=== PATIENT | female | born 1955 | race Caucasian/White ===

== ENCOUNTER 2017-05-01 06:37 | Inpatient (IN) | payer OTHER ==
[2017-04-27 09:48] VITALS: BMI 43.2
[2017-05-01] MEDS ORDERED: LIDOCAINE 1%/EPI 1:100000 (20 ML MULTI DOSE VIAL) ONE (07:04)
[2017-05-01] MEDS ORDERED: THROMBIN (BOVINE) 5,000 UNIT VIAL TP ONE ×2 (07:04→09:16)
[2017-05-01] MEDS ORDERED: BUPIVACAINE HCL/PF 2.5 MG/ML - 30 ML VIAL IJ ONE (07:04)
[2017-05-01] MEDS ORDERED: oxyCODONE HCL 10 MG SUSTAINED ACTING TABLET PO STA (07:08)
[2017-05-01] MEDS ORDERED: oxyCODONE HCL 5 MG TABLET ONE ×3 (07:10→15:19)
[2017-05-01] MEDS ORDERED: MIDAZOLAM HCL 2 MG/2 ML SINGLE DOSE VIAL ONE ×2 (08:22→09:07)
[2017-05-01] MEDS ORDERED: SUCCINYLCHOLINE CHLORIDE 200 MG/10 ML VIAL ONE (08:26)
[2017-05-01] MEDS ORDERED: PROPOFOL 20 ML ONE (08:26)
[2017-05-01] MEDS ORDERED: CLINDAMYCIN PHOSPHATE 600 MG/4 ML VIAL ONE (08:54)
[2017-05-01] MEDS ORDERED: ONDANSETRON 4 MG/2 ML VIAL ONE ×2 (08:54→09:06)
[2017-05-01] MEDS ORDERED: DEXAMETHASONE SOD PHOSPHATE 4 MG/1 ML VIAL ONE (08:54)
[2017-05-01] MEDS ORDERED: LIDOCAINE 1%/EPI 1:100000 (50 ML MULTI DOSE VIAL) INF ONE ×2 (09:00→10:30)
[2017-05-01] MEDS ORDERED: ePHEDrine SULFATE 50 MG/1 ML AMPULE ONE (09:05)
[2017-05-01] MEDS ORDERED: GELATIN SPONGE,ABSORBABLE 1 GM PACKET TP ONE (09:17)
--- NOTE | 2017-05-01 10:41 | HP ---
History & Physical Update - History History: No Change - Physical Physical: No Change - Assessment Assessment: No Change - Plan Plan: No Change
--- NOTE | 2017-05-01 10:44 | OP ---
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
[2017-05-01] MEDS ORDERED: ACETAMINOPHEN 325 MG TABLET (FP) PO SCH (10:45)
[2017-05-01] MEDS ORDERED: KETOROLAC TROMETHAMINE 30 MG/1 ML VIAL IVPUSH PRN (10:45)
[2017-05-01] MEDS ORDERED: LACTATED RINGERS SOLUTION 1,000 ML IV SCH ×2 (10:45)
[2017-05-01] MEDS ORDERED: ONDANSETRON 4 MG/2 ML VIAL IVPUSH PRN ×2 (10:45)
[2017-05-01] MEDS ORDERED: PROMETHAZINE HCL 25 MG/1 ML VIAL IVPUSH PRN (10:45)
[2017-05-01] MEDS ORDERED: oxyCODONE HCL 5 MG TABLET PO PRN ×4 (10:45)
--- NOTE | 2017-05-01 10:45 | SURG ---
Surgery Field Crop Farmer Note Field Crop Farmer: Nick Mora PA-C Date of Service: 05/01/17 Diagnosis: L4/5 spondylolithesis with radiculopathy Procedure: Transforaminal lumbar (L4/5) interbody fusion / decompression / instrumentation , neuromonitoring I was present for the entirety of the operative procedure. For further detail, please refer to operative report. Visit type - Case Type Case Type: Scheduled Admission - New patient This patient is new to me today: Yes Date on this admission: 05/01/17
[2017-05-01] MEDS ORDERED: ACETAMINOPHEN 1000 MG/100 ML VIAL (NON FORMULARY) IVPB ONE (10:50)
[2017-05-01] MEDS ORDERED: ALBUTEROL SO4 18 GM HFA INHALER IH PRN (10:50)
[2017-05-01] MEDS ORDERED: diazePAM 5 MG TABLET ONE (10:54)
[2017-05-01] MEDS ORDERED: PATIENT'S OWN MEDICATION (NON-FORMULARY) (Clonazepam [Klonopin] 0.5 MG) PO SCH (11:00)
[2017-05-01 11:05] VITALS: TEMP 98.3
[2017-05-01] MEDS ORDERED: CLINDAMYCIN 900 MG PREMIX IVPB 50 ML IVPB ONE (15:00)
[2017-05-01] MEDS ORDERED: CLINDAMYCIN 900 MG PREMIX BAG IVPB ONE (15:15)
[2017-05-01 16:40] VITALS: BP 142/84; PULSE 88
[2017-05-01] MEDS ORDERED: traMADol HCL 50 MG TABLET PO SCH (18:00)
[2017-05-01] MEDS ORDERED: ATORVASTATIN CA 10 MG TABLET (FP) PO SCH (22:00)
[2017-05-01] MEDS ORDERED: PATIENT'S OWN MEDICATION (NON-FORMULARY) (Omeprazole [Prilosec (Rx)] 40 MG) PO SCH (22:00)
[2017-05-01] MEDS ORDERED: PATIENT'S OWN MEDICATION (NON-FORMULARY) (Losartan/Hydrochlorothiazide [Losartan-Hctz 100- PO SCH (22:00)
[2017-05-01] MEDS ORDERED: diazePAM 2 MG TABLET PO SCH (22:00)
[2017-05-01] MEDS ORDERED: LOSARTAN POTASSIUM 50 MG TABLET (FP) PO SCH (22:00)
[2017-05-01] MEDS ORDERED: amLODIPine BESYLATE 5 MG TABLET (FP) PO SCH (22:00)
[2017-05-01] MEDS ORDERED: HYDROCHLOROTHIAZIDE 12.5 MG CAPSULE (FP) PO SCH (22:00)
[2017-05-01] MEDS ORDERED: diazePAM 5 MG TABLET PO SCH (22:00)
[2017-05-01] MEDS ORDERED: MONTELUKAST NA 10 MG TABLET PO SCH (22:00)
[2017-05-01] MEDS ORDERED: PANTOPRAZOLE 40 MG TABLET (FP) PO SCH (22:00)
[2017-05-01] MEDS ORDERED: PATIENT'S OWN MEDICATION (NON-FORMULARY) (Metformin Hcl [Metformin Hcl Er] 500 MG) PO SCH (22:00)
--- NOTE | 2017-05-02 07:52 | OP ---
DATE OF OPERATION: 05/01/2017 PREOPERATIVE DIAGNOSES: 1. Recurrent disk herniation at L4-5. 2. Spinal stenosis at L4-5. POSTOPERATIVE DIAGNOSES: 1. Recurrent disk herniation at L4-5. 2. Spinal stenosis at L4-5. PROCEDURE PERFORMED: 1. Transforaminal lumbar interbody fusion at L4-5. 2. Placement of instrumentation. 3. Hemilaminectomy. SURGEON: Shawn Young MD FORGE UTILITY WORKER: JOVANI Ruiz ESTIMATED BLOOD LOSS: 50 mL. INTRAVENOUS FLUIDS: Per Anesthesia. ANESTHESIA: Spinal. COMPLICATIONS: None. DISPOSITION: The patient brought to the PACU in stable condition. INDICATIONS FOR SURGERY: The patient is a 61-year-old female who had previously undergone a microdiscectomy. She had done well from that surgery, but then, she developed recurrent symptoms. X-rays and MRI were completed which noted that she had spinal stenosis at L4-5 secondary to a herniated disk. She had gone through an exhaustive course of treatment for this, which included medications, physical therapy, as well as injections. Unfortunately, her pain continued to persist despite all this. At this point, we had a long discussion about revision operation. We discussed the potential of doing a laminectomy versus a laminectomy plus fusion. Risks and benefits were discussed, and the patient decided to undergo a lumbar fusion. DESCRIPTION OF OPERATION: Patient was brought to the operating room by the anesthesia staff. After appropriate patient identification was performed, spinal anesthesia was given. Patient was able to place herself prone onto the OR table with all areas of bony prominences well padded at this time. The C-arm was brought in. The L4 and L5 pedicles were marked off. Next, 10 mL of lidocaine with epinephrine were injected into her back. At this time, her back was prepped and draped in a sterile manner. At this point, timeout was completed. Incisions were made bilaterally over the L4 and L5 pedicles. Dissection was carried down to the fascia. The fascia was split open at this time. The C-arm was brought in. Under C-arm guidance, trocars were advanced into both the L4 and L5 pedicles. Through the trocar, wire was inserted. Over the wire, tap was performed, and screws were inserted. On the left-hand side, retractor blades were set up to expose the L4-5 facet joint. The facet joint was removed. The disk was visualized and entered. Using a series of pituitaries, Kerrisons, and curettes, a diskectomy was completed. Endplates were decorticated at this time. Bone graft was laid down. A size 8 cage filled with bone graft was placed in. Tulip pads were placed over the screws. A james was measured and placed in. Caps were placed on. Compression and final tightening was performed. On the right-hand side, a james was measured and placed in. Caps were placed on. Compression and final tightening was performed. All extra instrumentation was removed at this time. The fascia was closed with a No. 1 Vicryl suture. Exparel was injected over the fascia. The subcutaneous tissue was closed with 2-0 Vicryl suture. The skin was closed with 3-0 Monocryl suture. Dermabond was applied. Steri-Strips were applied. A sterile dressing was applied. Patient was placed supine on the OR bed and brought to the PACU in stable condition. [place] BAY/[id number] MTDD
[2017-05-02] MEDS ORDERED: PATIENT'S OWN MEDICATION (NON-FORMULARY) (Linagliptin [Tradjenta] 5 MG) PO SCH (10:00)
== END 2017-05-01 16:22 | disposition home or self-care (01) | DRG 460 ==
LOC: FM/S 06:37
PROVIDERS: ADMIT Orthopaedic Surgery Orthopaedic Surgery of the Spine; ATTEND Orthopaedic Surgery Orthopaedic Surgery of the Spine
PROC: 0SB20ZZ Excision of Lumbar Vertebral Disc, Open Approach (ICD-10-PCS; 2017-05-01)
PROC: 0SG00AJ Fusion of Lumbar Vertebral Joint with Interbody Fusion Device, Posterior Approach, Anterior Column, Open Approach (ICD-10-PCS; principal; 2017-05-01 08:15)
DX: M51.26 Other intervertebral disc displacement, lumbar region (principal); Z68.41 Body mass index [BMI] 40.0-44.9, adult; M48.061 Spinal stenosis, lumbar region without neurogenic claudication; I10 Essential (primary) hypertension; J45.909 Unspecified asthma, uncomplicated; K21.9 Gastro-esophageal reflux disease without esophagitis; F41.8 Other specified anxiety disorders; E66.8 Other obesity; Z88.1 Allergy status to other antibiotic agents; Z85.528 Personal history of other malignant neoplasm of kidney
CPT/HCPCS: 72100-TC; 76001-TC; 94760

== ENCOUNTER 2017-10-20 09:42 | Day surgery (SDC) | payer OTHER ==
[2017-10-17 11:49] VITALS: BMI 46.5
[2017-10-20] MEDS ORDERED: BUPIVACAINE HCL/PF 2.5 MG/ML - 30 ML VIAL IJ ONE (11:57)
[2017-10-20] MEDS ORDERED: ROCURONIUM BROMIDE 50 MG/5 ML VIAL ONE (12:09)
[2017-10-20] MEDS ORDERED: PROPOFOL 20 ML ONE ×2 (12:09)
[2017-10-20] MEDS ORDERED: NEOSTIGMINE METHYLSULFATE 0.5 MG/ML - 10 ML MDV ONE (12:47)
[2017-10-20] MEDS ORDERED: GLYCOPYRROLATE 0.2 MG/1 ML VIAL ONE ×2 (12:48→13:03)
[2017-10-20] MEDS ORDERED: PHENYLEPHRINE HCL 10 MG/1 ML SINGLE DOSE VIAL ONE (12:48)
[2017-10-20] MEDS ORDERED: LIDOCAINE HCL/PF 2% SDV 5ML VIAL ONE (12:48)
[2017-10-20] MEDS ORDERED: BUPIVACAINE HCL/PF 0.25% (2.5MG/ML) 10 ML VIAL IJ ONE (13:02)
[2017-10-20] MEDS ORDERED: ONDANSETRON 4 MG/2 ML VIAL IVPUSH PRN (13:29)
[2017-10-20] MEDS ORDERED: oxyCODONE HCL 5 MG TABLET PO PRN ×2 (13:29)
[2017-10-20] MEDS ORDERED: LACTATED RINGERS SOLUTION 1,000 ML IV SCH (13:30)
[2017-10-20 14:22] VITALS: TEMP 97.8
[2017-10-20 14:46] VITALS: BP 131/74; PULSE 78
--- NOTE | 2017-10-22 21:06 | OP ---
DATE OF OPERATION: 10/20/2017 SURGEON: Josué Perrin MD MANAGER EMERGENCY: JOVANI Christie PREOPERATIVE DIAGNOSES: 1. Left knee mediolateral meniscal tear. 2. Left knee cartilage injury. 3. Left knee synovitis. POSTOPERATIVE DIAGNOSES: 1. Left knee mediolateral meniscal tear. 2. Left knee cartilage injury. 3. Left knee synovitis. PROCEDURE: 1. Left knee arthroscopy with partial meniscectomy mediolateral meniscus, CPT code 37456. 2. Left knee arthroscopy with chondroplasty and abrasioplasty, CPT code 18913. 3. Left knee arthroscopy with synovectomy, CPT code 39611. FINDINGS: 1. Medial meniscus body and posterior horn tear. 2. Lateral meniscus posterior horn tear. 3. Synovitis of patellofemoral, medial and lateral notch area. 4. Central grade 2-3 cartilage injury to medial femoral condyle. 5. ACL and PCL intact. 6. Diffuse grade 1-2 cartilage injury of lateral joint line. 7. Central grade 2-4 cartilage injury of patella and patellofemoral trochlea. PROCEDURE: PROCEDURE: Informed consent was obtained. The patient came to the operating room, where the lower extremity was prepped and draped in a sterile fashion. A tourniquet was placed on the upper thigh, but not inflated. Using standard arthroscopic technique, a lateral incision and portal was made to allow for introduction of the camera into the suprapatellar bursa. This was then taken to the medial joint line, where under direct visualization, a medial incision and portal was made. Excessive synovium noted in the medial, lateral and patellofemoral and notch area was removed by an up-biter, shaver and Bovie cautery. This was found to bring in inflammatory tissue into the joint surface, a source of pain and dysfunction. Probing of the medial and lateral meniscus found tears, as described in the findings. These were removed with the up-biter and shaver and taken back to a stable rim. Grade 2 to 3 degenerative changes were treated with a chondroplasty, removing all flaking surfaces with low-setting Bovie along the periphery to prevent further flaking. Grade 4 changes, as noted, were treated with an abrasioplasty, creating a bleeding surface at the bone/cartilage interface. Aggressive debridement with shaver/renzo created bleeding surface. Microfracture also done when indicated in findings All areas of the knee were once again reexamined. The knee was then drained and a single suture was placed in all portals. A sterile dressing was placed and the patient was transferred to the recovery room without complication. JOSUÉ PERRIN M.D. [id number]
--- NOTE | 2017-10-24 15:34 | PATH ---
Surgical Pathology Report Patient Name: AMILCAR LAZO [facility]. Rec. #: [id number] /Age/Gender: 1955 (Age: 61) / F Account: [id number] Location: [facility] AM[facility] Taken: 10/20/2017 Received: 10/20/2017 Reported: 10/24/2017 Physicians: Josué Frederick M.D. Specimen(s) Received LEFT KNEE SHAVINGS Clinical History Left knee internal derangement Final Diagnosis KNEE, LEFT, ARTHROSCOPIC SHAVING: FIBROCARTILAGE WITH MYXOID DEGENERATIVE CHANGES, ALONG WITH PORTIONS OF SYNOVIUM AND HYALINE CARTILAGE. Electronically Signed Oj Padron M.D. Gross Description Received in formalin, labeled "left knee shavings," is a 4.0 x 3.5 x 0.4 cm. aggregate of deutsch-yellow soft tissue fragments. A visitor services representative portion is submitted in one cassette. /10/23/201710/23/2017
== END 2017-10-20 15:15 | disposition home or self-care (01) ==
LOC: FASU 09:42
PROVIDERS: ATTEND Orthopaedic Surgery
PROC: 0SBD4ZZ Excision of Left Knee Joint, Percutaneous Endoscopic Approach (ICD-10-PCS; 2017-10-20)
PROC: 0SBD4ZZ Excision of Left Knee Joint, Percutaneous Endoscopic Approach (ICD-10-PCS; principal; 2017-10-20 12:41)
DX: S83.242A Other tear of medial meniscus, current injury, left knee, initial encounter (principal); S83.282A Other tear of lateral meniscus, current injury, left knee, initial encounter; S83.8X2A Sprain of other specified parts of left knee, initial encounter; M65.862 Other synovitis and tenosynovitis, left lower leg; X58.XXXA Exposure to other specified factors, initial encounter; Y93.89 Activity, other specified; Y92.89 Other specified places as the place of occurrence of the external cause
CPT/HCPCS: 82962; 88304-TC

== ENCOUNTER 2019-07-21 16:32 | Emergency (ER) | payer OTHER ==
[2019-07-21 16:39] VITALS: BP 157/76; PULSE 84; TEMP 98; BMI 43.2
--- NOTE | 2019-07-21 17:07 | PDOC ---
History of Present Illness - General Chief Complaint: Pain Stated Complaint: PAIN IN RIGHT KNEE Time Seen by Provider: 07/21/19 16:44 - History of Present Illness Initial Comments: 07/21/19 17:05 63-year-old female with multiple comorbidities presents for evaluation of atraumatic right knee pain she felt an onset of pain while going up the steps she points to the medial and lateral aspect of the right knee as the area of her discomfort. Past History - Past Medical History Allergies/Adverse Reactions: Allergies Allergy/AdvReac Type Severity Reaction Status Date / Time Penicillins Allergy Difficulty Verified 07/21/19 16:38 Breathing Home Medications: Ambulatory Orders Albuterol Sulfate Inhaler - [Ventolin HFA Inhaler -] 2 inh PO Q4H PRN #1 inh Linagliptin [Tradjenta] 5 mg PO DAILY 02/26/14 Losartan/Hydrochlorothiazide [Losartan-Hctz 100-12.5 mg Tab] 1 each PO HS Montelukast Na [Singulair -] 10 mg PO HS 02/26/14 Omeprazole [Prilosec (RX)] 40 mg PO HS 02/26/14 metFORMIN HCL [Metformin ER Osmotic] 500 mg PO BID 02/26/14 Clonazepam [Klonopin] 0.5 mg PO PRN 01/13/15 Amlodipine Besylate [Norvasc -] 5 mg PO HS 04/08/16 Atorvastatin Ca [Lipitor] 10 mg PO HS 04/08/16 Hydrocodone/Acetaminophen [[place] 5-325 Tablet] 1 each PO Q6H PRN #30 tablet MDD 8 10/20/17 Ibuprofen 800 mg PO Q8H PRN #60 tablet 10/20/17 Anemia: No Asthma: Yes (seasonal asthma) Cancer: Yes (RIGHT KIDNEY) Cardiac Disorders: No CVA: No COPD: No CHF: No Dementia: No Diabetes: Yes GI Disorders: Yes (REFLUX) Disorders: No HTN: Yes Hypercholesterolemia: Yes Liver Disease: No Seizures: No Thyroid Disease: No - Surgical History Abdominal Surgery: Yes (Right Nephrectomy 2014) Appendectomy: No Cardiac Surgery: No Cholecystectomy: No Lung Surgery: No Neurologic Surgery: No Orthopedic Surgery: Yes (Bilateral Carpal Tunnel Release, Right Ankle Compound Fx) - Psycho Social/Smoking Cessation Hx Smoking Status: Yes Smoking History: Current every day smoker Have you smoked in the past 12 months: No Number of Cigarettes Smoked Daily: 20 If you are a former smoker, when did you quit?: 08/2014 Information on smoking cessation initiated: No 'Breaking Loose' booklet given: 05/13/15 Hx Alcohol Use: Yes (SOCIAL) Drug/Substance Use Hx: No Substance Use Type: None Hx Substance Use Treatment: No Review of Systems - Review of Systems Musculoskeletal: Yes: Joint Pain *Physical Exam - Vital Signs Last Vital Signs Temp Pulse Resp BP Pulse Ox 98 F 84 18 157/76 99 07/21/19 16:36 07/21/19 16:36 07/21/19 16:36 07/21/19 16:36 07/21/19 16:36 - Physical Exam 07/21/19 17:05 Right knee skin color and temperature normal range of motion is limited extensor mechanism is preserved. No intra-articular effusion medial lateral joint line tenderness range of motion she does not bend past 90 no gross instability or sensorimotor deficits thigh and calf are soft and nontender she is neurovascular intact ED Treatment Course - RADIOLOGY Radiology Studies Ordered: Category Date Time Status KNEE 3 POS-RIGHT [RAD] Stat Radiology 07/21/19 16:46 Taken Medical Decision Making - Medical Decision Making 07/21/19 17:05 X-rays of the right knee showed no evidence of fracture or trauma she does have moderate degenerative changes minimal preserved joint space Discharge - Discharge Information Problems reviewed: Yes Clinical Impression/Diagnosis: Strain of right knee Condition: Stable Disposition: HOME - Admission No - Follow up/Referral Referrals: Alli Garcia MD [Primary Care Provider] - Yuriy Adrian DO [Staff Physician] - - Patient Discharge Instructions Additional Instructions: Return to the emergency room for worsening symptoms. Weight-bear as tolerated with crutches. Follow-up with orthopedic surgery in 2 to 3 days for further evaluation and treatment options. - Post Discharge Activity
== END 2019-07-21 17:19 | disposition home or self-care (01) ==
LOC: JERFT 16:32
DX: S86.811A Strain of other muscle(s) and tendon(s) at lower leg level, right leg, initial encounter (principal); Y93.01 Activity, walking, marching and hiking; Y93.89 Activity, other specified; Y92.89 Other specified places as the place of occurrence of the external cause; Y99.8 Other external cause status; I10 Essential (primary) hypertension; E78.00 Pure hypercholesterolemia, unspecified; E11.9 Type 2 diabetes mellitus without complications; Z79.84 Long term (current) use of oral hypoglycemic drugs; K21.9 Gastro-esophageal reflux disease without esophagitis; Z87.09 Personal history of other diseases of the respiratory system; Z85.528 Personal history of other malignant neoplasm of kidney; Z90.5 Acquired absence of kidney; Z88.0 Allergy status to penicillin
CPT/HCPCS: 73562-TC-RT-FY; 99281-25

== ENCOUNTER 2020-04-08 08:21 | Emergency (ER) | payer OTHER ==
[2020-04-08 08:45] VITALS: BMI 44.6
[2020-04-08] MEDS ORDERED: morphine CARPU-JECT 8 MG/1 ML DISP.SYRIN IVPUSH ONE ×2 (08:59→11:24)
[2020-04-08] MEDS ORDERED: morphine SULFATE 4 MG/ML VIAL ONE ×2 (09:16→11:27)
[2020-04-08] MEDS ORDERED: MORPHINE SULFATE 2 MG/ML VIAL ONE ×2 (09:16→11:27)
--- NOTE | 2020-04-08 09:23 | PDOC ---
Documentation entered by Gabriel Slaughter SCRIBE, acting as scribe for Yvette Azar MD. Yvette Azar MD: This documentation has been prepared by the Sukhjinder riojas Xhesika, SCRIBE, under my direction and personally reviewed by me in its entirety. I confirm that the documentation accurately reflects all work, treatment, procedures, and medical decision making performed by me. History of Present Illness - General Chief Complaint: Back Pain Stated Complaint: BACK PAIN Time Seen by Provider: 04/08/20 08:49 History Source: Patient Exam Limitations: No Limitations - History of Present Illness Initial Comments: 04/08/20 08:57 64y/o F with a pmh of DM, HTN, HLD, CKD and carcimona lung & bone who presents to the ED BIBA for LE numbness and weakness, progressively worsening. Per at bedside, the pt was endorsing lower back pain and BL hip pain, had imagining done and was found to have a fracture and cancer. states for the past 2 weeks they have been trying to start her chemo. states, yesterday the pt had a long day, was on her feet and had a port placed for her chemo. States last night she could no longer walk and states she is having weakness of b/l LEs from hips down. states, later that day she was trying to go to the restroom and fell. Pt denies hitting her head or LOC. Pt reports increased urinary frequency and urgency. Pt states her last BM was 4-5 days ago. Pt denies CP, SOB, headache or dizziness. Denies fevers, chills, N/V/D. Allergies: Pencillins PCP: Dr. Stone Past History - Medical History Allergies/Adverse Reactions: Allergies Allergy/AdvReac Type Severity Reaction Status Date / Time Penicillins Allergy Difficulty Verified 04/08/20 08:37 Breathing Home Medications: Ambulatory Orders Albuterol Sulfate Inhaler - [Ventolin HFA Inhaler -] 2 inh PO Q4H PRN #1 inh 02/26/14 Linagliptin [Tradjenta] 5 mg PO DAILY 02/26/14 Montelukast Na [Singulair -] 10 mg PO HS 02/26/14 Omeprazole [Prilosec (RX)] 40 mg PO HS 02/26/14 metFORMIN HCL [Metformin ER Osmotic] 500 mg PO BID 02/26/14 Clonazepam [Klonopin] 0.5 mg PO PRN 01/13/15 Amlodipine Besylate [Norvasc -] 5 mg PO HS 04/08/16 Atorvastatin Ca [Lipitor] 10 mg PO HS 04/08/16 Ibuprofen 800 mg PO Q8H PRN #60 tablet 10/20/17 Anemia: No Asthma: Yes (seasonal asthma) 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) Cardiac Disorders: No CVA: No COPD: No CHF: No Dementia: No Diabetes: Yes GI Disorders: Yes (REFLUX) Disorders: No HTN: Yes Hypercholesterolemia: Yes Liver Disease: No Seizures: No Thyroid Disease: No - Surgical History Abdominal Surgery: Yes (Right Nephrectomy 2014) Appendectomy: No Cardiac Surgery: No Cholecystectomy: No Lung Surgery: No Neurologic Surgery: No Orthopedic Surgery: Yes (Bilateral Carpal Tunnel Release, Right Ankle Compound Fx) - Reproductive History Is Patient Now?: No - Psycho-Social/Smoking History Smoking Status: Yes Smoking History: Current every day smoker Have you smoked in the past 12 months: Yes Number of Cigarettes Smoked Daily: 20 If you are a former smoker, when did you quit?: 08/2014 Information on smoking cessation initiated: No 'Breaking Loose' booklet given: 05/13/15 - Substance Abuse Hx (Audit-C & DAST Scrn) How often the patient has a drink containing alcohol: Never Score: In Men: 4 or > Positive; In Women: 3 or > Positive: 0 Screen Result (Pos requires Nsg. Audit-10AR): Negative In the last yr the pt used illegal drug/Rx for NonMed reason: No Score: Yes response is considered Positive: 0 Screen Result (Positive result requires Nsg. DAST-10): Negative Review of Systems - Review of Systems Able to Perform ROS?: Yes Comments:: 04/08/20 09:04 GENERAL/CONSTITUTIONAL: No fever or chills. No weakness. HEAD, EYES, EARS, NOSE AND THROAT: No change in vision. No ear pain or discharge. No sore throat. CARDIOVASCULAR: No chest pain or shortness of breath. RESPIRATORY: No cough, wheezing, or hemoptysis. GASTROINTESTINAL: No nausea, vomiting, diarrhea or constipation. +urinary frequency GENITOURINARY: No dysuria, frequency, or change in urination. MUSCULOSKELETAL: No joint or muscle swelling or pain. No neck pain. +lower back pain. +BL hip pain SKIN: No rash NEUROLOGIC: No headache, vertigo, loss of consciousness. +LE numbness and w eakness. ENDOCRINE: No increased thirst. No abnormal weight change. HEMATOLOGIC/LYMPHATIC: No anemia, easy bleeding, or history of blood clots. ALLERGIC/IMMUNOLOGIC: No hives or skin allergy. *Physical Exam - Vital Signs Last Vital Signs Temp Pulse Resp BP Pulse Ox 100 H 20 165/96 100 04/08/20 08:38 04/08/20 08:38 04/08/20 08:38 04/08/20 08:38 - Physical Exam 04/08/20 09:07 GENERAL: non-toxic appearing, uncomfortable HEENT: NCAT, conjunctiva not injected, MMM, EOMI NECK: Normal ROM, supple LUNGS: Diffuse scattered wheezes. Good air entry. No Rhonchi and no crackles HEART: RRR, + s1 s2 ABDOMEN: Obese limiting exam, Soft, nontender, normoactive bowel sounds. No guarding, no rebound. No masses BACK: +midline and paraspinal tenderness ~T12-L3, no stepoffs. +bruising noted to lower back crossing midline ( states they noticed the bruising a few days ago). EXTREMITIES: Warm and well perfused. No LE edema. no bony tenderness, sensation grossly intact to light touch, dorsiflexion/plantarflexion 1/5 b/l, minimal movement when asked to wiggle toes, flexion/extension at hips 1/5 b/l, +DP pulses NEUROLOGICAL: Aox3, Speech fluent, face symmetric, tongue/uvula midline. Sensation grossly intact to light touch. Heart Score/ECG Review - ECG Impressions Comment:: 04/08/20 09:11 NSR, rate 72, normal intervals, no ischemic changes ED Treatment Course - LABORATORY CBC & Chemistry Diagram: 04/08/20 09:14 04/08/20 09:14 Medical Decision Making - Medical Decision Making 04/08/20 09:20 64 yo F with back pain, urinary urgency and frequency, constipation and significantly reduced strength concerning for cord compression possibly 2/2 pathologic fx/bony mets. Plan: -labs -cxr -xray pelvis -pt. will likely require MRI to evaluate spinal cord. If unable to get emergent MRI authorization will get CT t+L spine -pain control as needed -reassess This clinical encounter is taking place during a federal and state health care emergency attributable to the novel [place] Virus pandemic. The [place] of the Department of Health and Human Services has declared, pursuant to the Public Health Service Act 319F-3 (42 U.S.C. 247d-6d), that a covered persons activities related to medical countermeasures against COVID-19 will be immune from liability under Federal and State law. 04/08/20 15:01 Spoke with radiologist regarding prelim read of patient's MRI (limited images done at present time). Concern for cord compression. Neurosurgery consulted. Appreciate recs. Pt. signed out to incoming night team. Discharge - Discharge Information Problems reviewed: Yes Clinical Impression/Diagnosis: Compression fracture of T10 vertebra, Spinal cord compression Condition: Guarded Disposition: TRANSFER ACUTE CARE/OTHER HOSP - Follow up/Referral Referrals: Rafita Stone MD [Primary Care Provider] - - Patient Discharge Instructions - Post Discharge Activity
--- OUTSIDE RECORDS SUMMARY | 2020-04-08 09:30 | XMS ---
:1955 Author Organization [facility] Support Name Relationship Address Phone UNEMPLOYED Unavailable Unavailable Unavailable UE Unavailable Unavailable Unavailable JANNETTE LAZO [address] [facility] [place] [place] [address] Re-disclosure Warning The records that you are about to access may contain information from federally- assisted alcohol or drug abuse programs. If such information is present, then the following federally mandated warning applies: This information has been disclosed to you from records protected by federal confidentiality rules (42 CFR part 2). The federal rules prohibit you from making any further disclosure of this information unless further disclosure is expressly permitted by the written consent of the person to whom it pertains or as otherwise permitted by 42 CFR part 2. A general authorization for the release of medical or other information is NOT sufficient for this purpose. The Federal rules restrict any use of the information to criminally investigate or prosecute any alcohol or drug abuse patient.The records that you are about to access may contain highly sensitive health information, the redisclosure of which is protected by Article 27-F of the [facility] Public Health law. If you continue you may haveaccess to information: Regarding HIV / AIDS; Provided by facilities licensed or operated by the [facility] Office of Mental Health; or Provided by the [facility] Office for People With Developmental Disabilities. If such information is present, then the following [facility] mandated warning applies: This information has been disclosed to you from confidential records which are protected by state law. State law prohibits you from making any further disclosure of this information without the specific written consent of the person to whom it pertains, or as otherwise permitted by law. Any unauthorized further disclosure in violation of state law may result in a fine or shelter sentence or both. A general authorization for the release of medical or other information is NOT sufficient authorization for further disclosure. Allergies and Adverse Reactions Type Description Substance Reaction Status Data Source(s ) Drug allergy Penicillins Penicillins ANAPHYLAXIS [facility] Encounters Encounter Providers Location Date Indications Data Source(s ) Outpatient 02/18/2020 LUMBAR RADICULOPATHY [facility] [place] 09:00:00 AM EDT Hospital LUMBAR RADICULOPATHY Insurance Providers Payer name Policy type Policy ID Covered Covered libertarian's Policy P betsy / Coverage libertarian ID relationship to [facility] type [facility] MEDICARE [id number] PT [id number] MEDICARE [id number] [place] [id number] [place] [id number] HEALTH PLANS MEDICARE [id number] SP [id number] A Problems, Conditions, and Diagnoses Code Display Name Description Problem Type Effective Dates Data Source(s) M47.26 Other spondylosis M47.26 Diagnosis 02/18/2020 [facility] radiculopathy, 11:24:00 AM EDT Hospital lumbar region M48.061 Spinal stenosis, M48.061 Diagnosis 02/18/[address] [facility] lumbar region without 11:24:00 AM ED T Hospital neurogenic claudication M51.16 Intervertebral disc M51.16 Diagnosis 02/18/2020 [facility] with 11:24:00 AM EDT Hospi lori radiculopathy, lumbar region Results ID Date Data Source [id number] 04/03/2020 07:46:00 AM EDT [facility] Name Value Range Interpretation Description Data Sup porting Code Source(s) Document(s ) SARS [facility] coronavirus 2 RNA This lab was ordered by [employer] and reported by [facility]. ID Date Data Source [id number] 03/20/2020 10:23:00 AM EDT [facility] Name Value Range Interpretation Description Data Sup porting Code Source(s) Document(s ) SARS [facility] coronavirus 2 RNA This lab was ordered by [employer] and reported by [facility]. ID Date Data Source [id number] 02/28/2020 10:44:00 AM EDT [facility] Name Value Range Interpretation Description Data Sup porting Code Source(s) Document(s ) SARS [facility] coronavirus 2 RNA This lab was ordered by [employer] and reported by [facility]. Procedure
[2020-04-08 09:46] LABS: BASO % 0.7 % (0-2.0); EOS % 0.2 % (0-4.5); HEMATOCRIT 43.7 % (32.4-45.2); HEMOGLOBIN 13.8 GM/dL (10.7-15.3); LYMPH % 6.2 % (8-40); MCH 24.8 pg (25.7-33.7); MCHC 31.6 g/dl (32.0-36.0); MEAN CELL VOLUME 78.5 fl (80-96); MEAN PLT VOLUME 8.3 fl (7.5-11.1); MONO % 5.6 % (3.8-10.2); NEUT % 87.3 % (42.8-82.8); PLATELET COUNT 254 K/MM3 (134-434); RBC 5.57 M/mm3 (3.60-5.2); WHITE BLOOD COUNT 14.8 K/mm3 (4.0-10.0)
[2020-04-08 09:53] LABS: INR 0.91 (0.83-1.09); PROTHROMBIN TIME (PATIENT) 10.7 SEC (9.7-13.0)
[2020-04-08 09:55] LABS: ACTIVATED PTT 27.2 SECONDS (25.2-36.5)
[2020-04-08 10:21] LABS: ALBUMIN 3.7 g/dl (3.4-5.0); BLOOD UREA NITROGEN 29.2 mg/dL (7-18); CALCIUM 9.7 mg/dL (8.5-10.1); CREATININE 0.8 mg/dL (0.55-1.3); POTASSIUM 5.1 mmol/L (3.5-5.1); TOT PROT 6.9 g/dl (6.4-8.2)
[2020-04-08] MEDS ORDERED: HYDROmorphone HCL CARPU-JECT 2 MG/1 ML DISP.SYRIN IVPUSH ONE ×2 (15:35→18:41)
[2020-04-08] MEDS ORDERED: HYDROmorphone HCl 2 MG/ML VIAL ONE ×2 (15:37→18:41)
[2020-04-08] MEDS ORDERED: DEXAMETHASONE SOD PHOSPHATE 10 MG/1 ML VIAL IVPUSH ONE (16:21)
[2020-04-08] MEDS ORDERED: DEXAMETHASONE SOD PHOSPHATE 10 MG/1 ML VIAL ONE (16:37)
--- NOTE | 2020-04-08 16:52 | PDOC ---
*Physical Exam - Vital Signs Last Vital Signs Temp Pulse Resp BP Pulse Ox 103 H 18 143/74 97 04/08/20 15:46 04/08/20 15:46 04/08/20 15:46 04/08/20 15:46 ED Treatment Course - LABORATORY CBC & Chemistry Diagram: 04/08/20 09:14 04/08/20 09:14 - ADDITIONAL ORDERS Additional order review: Laboratory Results 04/08/20 04/08/20 04/08/20 09:14 09:14 09:14 PT with INR 10.70 INR 0.91 PTT (Actin FS) 27.2 Sodium 135 L Potassium 5.1 Chloride 100 Carbon Dioxide 29 Anion Gap 5 L BUN 29.2 H Creatinine 0.8 Est GFR (CKD-EPI)AfAm 91.58 Est GFR (CKD-EPI)NonAf 79.01 Random Glucose 101 Calcium 9.7 Total Bilirubin 1.0 AST 16 ALT 28 Alkaline Phosphatase 84 Total Protein 6.9 Albumin 3.7 Blood Type B POSITIVE Antibody Screen Negative 04/08/20 09:14 RBC 5.57 H MCV 78.5 L MCHC 31.6 L RDW 19.0 H MPV 8.3 Neutrophils % 87.3 H Lymphocytes % 6.2 L Monocytes % 5.6 Eosinophils % 0.2 Basophils % 0.7 - Medications Given in the ED: ED Medications Discontinued Medications Generic Name Dose Route Start Last Admin Trade Name Freq PRN Reason Stop Dose Admin Dexamethasone Sodium Phosphate 10 mg 04/08/20 16:21 04/08/20 16:30 Decadron Injection - IVPUSH 04/08/20 16:22 10 mg ONCE ONE Administration Hydromorphone HCl 1 mg 04/08/20 15:35 04/08/20 15:45 Dilaudid Injection - IVPUSH 04/08/20 15:36 1 mg ONCE ONE Administration Morphine Sulfate 6 mg 04/08/20 08:59 04/08/20 09:10 Morphine Sulfate IVPUSH 04/08/20 09:00 6 mg ONCE ONE Administration Morphine Sulfate 6 mg 04/08/20 11:24 04/08/20 11:31 Morphine Sulfate IVPUSH 04/08/20 11:25 6 mg ONCE ONE Administration Medical Decision Making - Medical Decision Making 04/08/20 16:51 a/p: 64yo female with renal ca with mets who was supposed to start chemo on monday, had a port placed yesterday with back pain today -pt signed out pending MRI and discussion with [facility] -family updated, pain currently controlled, given decadron -will monitor and reassess 04/08/20 17:08 pt with T10 fx with retropulsion and mild cord compression case again discussed with Dr. Ch, given poss mets seen on MRI agrees with transfer to [facility] family requests [facility] family updated and agrees to transfer 04/08/20 17:21 case discussed with Dsr. Schaefer at [facility] - [facility] accepts pt in transfer 04/08/20 17:26 pts has signed consent pt agrees to transfer verbally wiggles toes, sensation intact weak in le also limited movement from pain 5-10days of progressive weakness Discharge - Discharge Information Problems reviewed: Yes Clinical Impression/Diagnosis: Compression fracture of T10 vertebra, Spinal cord compression Condition: Guarded Disposition: TRANSFER ACUTE CARE/OTHER HOSP - Follow up/Referral Referrals: Rafita Stone MD [Primary Care Provider] - - Patient Discharge Instructions - Post Discharge Activity - Transfer to Acute Care Facility Receiving Facility Name: [facility] [address] Accepting Physician:: Dr. Schaefer
[2020-04-08 18:41] VITALS: PULSE 100
[2020-04-08 18:45] VITALS: BP 115/76; TEMP 97.9
--- NOTE | 2020-04-09 09:54 | EKG ---
Test Reason : Blood Pressure : / mmHG Vent. Rate : 072 BPM Atrial Rate : 072 BPM P-R Int : 146 ms QRS Dur : 088 ms QT Int : 348 ms P-R-T Axes : 055 007 026 degrees QTc Int : 381 ms NORMAL SINUS RHYTHM CANNOT RULE OUT ANTERIOR INFARCT , AGE UNDETERMINED ABNORMAL ECG WHEN COMPARED WITH ECG OF 02-AUG-2010 13:08, NO SIGNIFICANT CHANGE WAS FOUND Confirmed by STEVENSON ENGLAND MD ([id number]) on 04/09/2020 9:54:10 AM Referred By: Confirmed By:STEVENSON ENGLAND MD
== END 2020-04-08 19:04 | disposition short-term general hospital (02) ==
LOC: JER 08:21
PROC: 3E033NZ Introduction of Analgesics, Hypnotics, Sedatives into Peripheral Vein, Percutaneous Approach (ICD-10-PCS; principal; 2020-04-08)
PROC: 3E033GC Introduction of Other Therapeutic Substance into Peripheral Vein, Percutaneous Approach (ICD-10-PCS; 2020-04-08)
DX: S22.070A Wedge compression fracture of T9-T10 vertebra, initial encounter for closed fracture (principal)
CPT/HCPCS: 36415; 71046-TC-FY; 72146-TC; 72148-TC; 72170-TC-FY; 80053; 85025; 85610; 85730; 86850; 86900; 86901; 93005; 93010; 99285-25; J1100